=== PATIENT | female | born 1935 | race Caucasian/White ===

== ENCOUNTER → 2017-10-09 | Outpatient (CLI) | payer MEDICARE ==
--- NOTE | 2017-10-09 12:03 | Diagnostic Imaging Report ---
PROCEDURE: BARIUM SWALLOW was performed with Sodium Carbonate and Barium. TECHNIQUE:Multiple fluoroscopic spot images were acquired of the esophagus and proximal stomach after the administration of effervescent crystals and thin and thick barium. Images were obtained in the upright and supine positions from multiple obliquities. COMPARISON: None. INDICATIONS: Pain. FINDINGS: Swallow: The swallowing mechanism was grossly normal. The esophagus was normally distensible and the mucosa was within normal limits. Esophageal motility was within normal limits. Gastroesophageal junction: There is no evidence of hiatal hernia. Reflux: Assessment for gastroesophageal reflux demonstrated no evidence of reflux. The visualized portion of the stomach and proximal small bowel are unremarkable. IMPRESSION: No acute radiographic abnormality. Dictated by: Dick Smith M.D. on 10/09/2017 at 12:13 Electronically approved by: Dick Smith M.D. on 10/09/2017 at 12:13
== END ==
LOC: DX 10:19
PROVIDERS: ATTEND Internal Medicine Gastroenterology
DX: R07.9 Chest pain, unspecified (principal)
CPT/HCPCS: 74220